=== PATIENT | female | born 1995 | race American Indian/Alaskan Native ===

== ENCOUNTER 2017-02-20 18:10 | Outpatient (CLI) | payer MEDICAID ==
[2017-02-20 18:36] VITALS: BP 110/61
[2017-02-20] MEDS ORDERED: LACTATED RINGERS 500 ML IV ONE (19:30)
== END 2017-02-20 19:32 | disposition home or self-care (01) ==
LOC: TRG 18:10
PROVIDERS: ATTEND Obstetrics & Gynecology
DX: O47.1 False labor at or after 37 completed weeks of gestation (principal); Z3A.37 37 weeks gestation of pregnancy

== ENCOUNTER 2017-03-05 18:24 | Outpatient (CLI) | payer MEDICAID ==
[2017-03-06 11:29] VITALS: BP 115/68
== END 2017-03-05 20:20 | disposition home or self-care (01) ==
LOC: TRG 18:24
PROVIDERS: ATTEND Obstetrics & Gynecology
DX: O47.1 False labor at or after 37 completed weeks of gestation (principal); Z3A.39 39 weeks gestation of pregnancy

== ENCOUNTER 2017-03-06 03:38 | Outpatient (CLI) | payer MEDICAID ==
[2017-03-06] MEDS ORDERED: LACTATED RINGERS 1,000 ML IV SCH (04:27)
[2017-03-06] MEDS ORDERED: SUBLIMAZE IV ONE (05:51)
[2017-03-06] MEDS ORDERED: SUBLIMAZE ONE (05:55)
[2017-03-06] MEDS ORDERED: AMBIEN PO PRN (06:55)
== END 2017-03-06 07:22 | disposition home or self-care (01) ==
LOC: TRG 03:38
PROVIDERS: ATTEND Obstetrics & Gynecology Gynecology
DX: O47.1 False labor at or after 37 completed weeks of gestation (principal); Z3A.39 39 weeks gestation of pregnancy
CPT/HCPCS: 59025; 96360; 96361; 96372; J3010; J7120

== ENCOUNTER 2017-03-06 09:14 | Outpatient (CLI) | payer MEDICAID ==
[2017-03-06] MEDS ORDERED: AMBIEN PO PRN (10:00)
[2017-03-06 12:15] VITALS: BP 120/76
== END 2017-03-06 10:15 | disposition home or self-care (01) ==
LOC: TRG 09:14
PROVIDERS: ATTEND Obstetrics & Gynecology Gynecology
DX: O47.1 False labor at or after 37 completed weeks of gestation (principal); Z3A.39 39 weeks gestation of pregnancy
CPT/HCPCS: 59025

== ENCOUNTER 2017-03-06 18:31 | Inpatient (IN) | payer MEDICAID ==
[2017-03-06] MEDS ORDERED: LACTATED RINGERS 1,000 ML ONE (18:56)
[2017-03-06] MEDS ORDERED: BRETHINE IVP PRN (19:29)
[2017-03-06] MEDS ORDERED: XYLOCAINE 2% INFILTRATI ONE (19:29)
[2017-03-06] MEDS ORDERED: ePHEDrine SULFATE IV PRN ×2 (19:29→21:53)
[2017-03-06] MEDS ORDERED: MINERAL OIL PO PRN (19:29)
[2017-03-06] MEDS ORDERED: BRETHINE SUB-Q PRN (19:29)
[2017-03-06] MEDS ORDERED: ZOFRAN IV PRN (19:29)
--- NOTE | 2017-03-06 19:29 | History and Physical Report ---
History of Present Illness Date of examination: 03/06/17 Date of admission: 03/06/17 18:31 Chief complaint: Painful contractions History of present illness: 21-year-old at 39+6 weeks presents with above complaints and issues, she is as [facility] patient. course has been unremarkable, she is GBS positive per patient Past History Past Medical History: no pertinent history Past Surgical History: no surgical history [employer] History: denies: chlamydia, gonorrhea, hepatitis B, hepatitis C, herpes, HIV , syphilis, trichomonas Social history: single, full code. denies: smoking, alcohol abuse, prescription drug abuse, IV drug use - Obstetrical History Expected Date of Delivery: 03/07/17 Actual Gestation: 39 Week(s) 6 Day(s) : 1 Para: 0 Medications and Allergies Allergies Allergy/AdvReac Type Severity Reaction Status Date / Time Penicillins Allergy Intermediate Hives Verified 02/20/17 18:28 Review of Systems Constitutional: no fever, no chills, no weakness, no chronic headaches Cardiovascular: no chest pain, no orthopnea, no edema, no syncope, no lightheadedness, no shortness of breath, no dyspnea on exertion, no high blood pressure, no leg edema, no decreased exercise tolerance Respiratory: no cough, no shortness of breath, no dyspnea on exertion Gastrointestinal: no nausea, no vomiting, no heartburn, no indigestion Genitourinary: contractions, no vaginal bleeding, no vaginal discharge, no leakage of fluid - Vital Signs Vital signs: Vital Signs Temp 99.9 F H 03/06/17 18:44 Temp Pulse Resp BP Pulse Ox 99.9 F H 80 127/76 03/06/17 18:44 03/06/17 18:47 03/06/17 18:47 - Physical Exam Cardiovascular: Regular rate, Normal S1, Normal S2 Lungs: Positive: Clear to auscultation, Normal air movement Abdomen: Positive: normal appearance, soft. Negative: distention, tenderness, guarding, rigidity Genitourinary (Female): Positive: normal external genitalia Uterus: Positive: enlarged (EFW ~ 3600) Extremities: Positive: normal - Obstetrical FHR: category 1 Uterine Contraction Monitor Mode: External Cervical Dilatation: 4 (Per RN exam) station: -2 Results All other labs normal. Assessment and Plan A: 21-year-old at 39+6 weeks in active labor -Cat 1 tracing P: -Admit -Routine labs -GBS prophylaxis -Epidural prn -Anticipate - Patient Problems (1) 39 weeks gestation of Current Visit: Yes Status: Acute (2) Active labor at term Current Visit: Yes Status: Acute
[2017-03-06] MEDS: LACTATED RINGERS 1,000 ML IV SCH ×2 (19:35→20:46)
[2017-03-06] MEDS: SUBLIMAZE IV PRN ×2 (19:50→21:50)
[2017-03-06] MEDS ORDERED: PITOCin/NS 20 UNIT/1000ML DRIP 20 UNITS/1,000 ML BAG IV SCH (20:00)
[2017-03-06] MEDS ORDERED: VANCOMYCIN/NS 1 GM/250 ML 1 GM/250 ML BAG IV SCH (20:00)
[2017-03-06] MEDS ORDERED: PITOCin/NS 30 UNIT/500ML 30 UNITS/500 ML BAG IV SCH ×2 (20:00)
--- NOTE | 2017-03-06 21:03 | Progress Note ---
Assessment and Plan A: 21-year-old at 39+6 weeks in active labor -Cat 1 tracing P: -Continue present care -Anticipate - Patient Problems (1) 39 weeks gestation of Current Visit: Yes Status: Acute (2) Active labor at term Current Visit: Yes Status: Acute Subjective - Subjective Date of service: 03/06/17 Interval history: she is presently 4-5 cm and -2 station Patient reports: contractions, no loss of fluid, no vaginal bleeding Objective - Vital Signs Vital Signs: Vital Signs - 12hr 03/06/17 03/06/17 03/06/17 18:44 18:47 19:50 Temperature 99.9 F H Pulse Rate 80 Respiratory 14 Rate Blood Pressure 127/76 - Exam FHR: category 1 Cervical Dilatation: 4.5 station: -2
[2017-03-06 21:18] LABS: Hematocrit 31.2 % (30.3-42.9); Hemoglobin 10.1 gm/dl (10.1-14.3); Mean Corpuscular HGB Conc 32 % (30-34); Mean Corpuscular Hemoglobin 28 pg (28-32); Mean Corpuscular Volume 87 fl (79-97); Platelet Count 157 K/mm3 (140-440); Red Blood Count 3.57 M/mm3 (3.65-5.03); Red Cell Distribution Width 15.4 % (13.2-15.2); White Blood Count 11.8 K/mm3 (4.5-11.0)
[2017-03-06] MEDS ORDERED: NARCAN 2 MG/2 ML IV PRN (21:53)
--- NOTE | 2017-03-06 21:53 | Anesthesia Consultation ---
Anesthesia Consult and Med Hx Date of service: 03/06/17 - Airway Anesthetic Teeth Evaluation: Good ROM Head & Neck: Adequate Mental/Hyoid Distance: Adequate Mallampati Class: Class II Intubation Access Assessment: Probably Good - Pulmonary Exam CTA: Yes - Cardiac Exam Cardiac Exam: RRR - Pre-Operative Health Status ASA Pre-Surgery Classification: ASA2 Proposed Anesthetic Plan: Epidural, Spinal - Pulmonary Hx Asthma: No COPD: No Hx Pneumonia: No - Cardiovascular System Hx Hypertension: No - Central Nervous System Hx Seizures: No Hx Psychiatric Problems: No - Endocrine Hx Renal Disease: No Hx End Stage Renal Disease: No Hx Hypothyroidism: No Hx Hyperthyroidism: No - Hematic Hx Anemia: No Hx Sickle Cell Disease: No - Other Systems Hx Alcohol Use: No - Additional Comments Anesthesia Medical History Comments: IUP
[2017-03-06] MEDS ORDERED: fentaNYL-BUPIV 2 MCG/ML-0.125% 200 MCG/100 ML BAG EPIDURAL SCH (22:00)
--- NOTE | 2017-03-06 23:14 | Progress Note ---
Assessment and Plan A: 21-year-old at 39+6 weeks in active labor -Cat 1 tracing at this time P: -Decels have resolved at this time -Continue present care -Anticipate - Patient Problems (1) 39 weeks gestation of Current Visit: Yes Status: Acute (2) Active labor at term Current Visit: Yes Status: Acute Subjective - Subjective Date of service: 03/06/17 Interval history: Patient with a run of late decels after her epidural, she is 5 cm. Currently has oxygen, IV hydration ongoing w/ position changes. Her decel has resolved. Plan is to hold pitocin for now and observe. Patient reports: contractions, no loss of fluid, no vaginal bleeding Objective - Vital Signs Vital Signs: Vital Signs - 12hr 03/06/17 03/06/17 03/06/17 18:44 18:47 19:50 Temperature 99.9 F H Pulse Rate 80 Respiratory 14 Rate Blood Pressure 127/76 Blood Pressure [Right] O2 Sat by Pulse Oximetry 03/06/17 03/06/17 03/06/17 21:33 21:48 21:50 Temperature 98.2 F Pulse Rate 80 83 Respiratory 14 14 Rate Blood Pressure Blood Pressure 127/76 [Right] O2 Sat by Pulse 98 Oximetry 03/06/17 03/06/17 03/06/17 21:53 22:08 22:11 Temperature Pulse Rate 82 79 80 Respiratory Rate Blood Pressure 117/59 Blood Pressure [Right] O2 Sat by Pulse 100 99 Oximetry 03/06/17 03/06/17 03/06/17 22:13 22:15 22:16 Temperature Pulse Rate 80 86 83 Respiratory Rate Blood Pressure 118/61 118/63 113/60 Blood Pressure [Right] O2 Sat by Pulse 100 Oximetry 03/06/17 03/06/17 03/06/17 22:18 22:20 22:23 Temperature Pulse Rate 77 96 H 84 Respiratory Rate Blood Pressure 113/63 115/65 101/58 Blood Pressure [Right] O2 Sat by Pulse 99 100 Oximetry 03/06/17 03/06/17 03/06/17 22:24 22:26 22:28 Temperature Pulse Rate 98 H 106 H 112 H Respiratory Rate Blood Pressure 110/63 103/55 101/58 Blood Pressure [Right] O2 Sat by Pulse 99 Oximetry 03/06/17 03/06/17 03/06/17 22:31 22:33 22:35 Temperature Pulse Rate 95 H 109 H 83 Respiratory Rate Blood Pressure 106/56 101/57 103/54 Blood Pressure [Right] O2 Sat by Pulse 100 Oximetry 03/06/17 03/06/17 03/06/17 22:36 22:38 22:39 Temperature Pulse Rate 75 75 75 Respiratory Rate Blood Pressure 106/56 105/55 Blood Pressure [Right] O2 Sat by Pulse 99 Oximetry 03/06/17 03/06/17 03/06/17 22:41 22:43 22:45 Temperature Pulse Rate 79 99 H 75 Respiratory Rate Blood Pressure 107/56 105/55 116/59 Blood Pressure [Right] O2 Sat by Pulse 100 Oximetry 03/06/17 03/06/17 03/06/17 22:47 22:48 22:51 Temperature Pulse Rate 75 95 H 96 H Respiratory Rate Blood Pressure 110/54 99/60 107/55 Blood Pressure [Right] O2 Sat by Pulse 100 Oximetry 03/06/17 03/06/17 03/06/17 22:53 22:55 22:58 Temperature Pulse Rate 76 79 Respiratory Rate Blood Pressure 104/51 105/59 Blood Pressure [Right] O2 Sat by Pulse 100 100 Oximetry 03/06/17 03/06/17 23:00 23:03 Temperature Pulse Rate 86 85 Respiratory Rate Blood Pressure 103/51 109/53 Blood Pressure [Right] O2 Sat by Pulse 100 Oximetry - Exam FHR: category 1 Cervical Dilatation: 5 - Labs Labs: Abnormal Labs 03/06/17 21:00 WBC 11.8 H RBC 3.57 L RDW 15.4 H Laboratory Results - last 24 hr 03/06/17 03/06/17 21:00 21:00 WBC 11.8 H RBC 3.57 L Hgb 10.1 Hct 31.2 MCV 87 MCH 28 MCHC 32 RDW 15.4 H Plt Count 157 Blood Type O POSITIVE Antibody Screen TNR NELSON Antibody Screen Negative
--- NOTE | 2017-03-07 00:12 | Progress Note ---
Assessment and Plan - Patient Problems (1) 39 weeks gestation of Current Visit: Yes Status: Acute (2) Active labor at term Current Visit: Yes Status: Acute Subjective - Subjective Date of service: 03/07/17 Patient reports: movement normal, contractions, no loss of fluid, no vaginal bleeding Objective - Vital Signs Vital Signs: Vital Signs - 12hr 03/06/17 03/06/17 03/06/17 18:44 18:47 19:50 Temperature 99.9 F H Pulse Rate 80 Respiratory 14 Rate Blood Pressure 127/76 Blood Pressure [Right] O2 Sat by Pulse Oximetry 03/06/17 03/06/17 03/06/17 21:33 21:48 21:50 Temperature 98.2 F Pulse Rate 80 83 Respiratory 14 14 Rate Blood Pressure Blood Pressure 127/76 [Right] O2 Sat by Pulse 98 Oximetry 03/06/17 03/06/17 03/06/17 21:53 22:08 22:11 Temperature Pulse Rate 82 79 80 Respiratory Rate Blood Pressure 117/59 Blood Pressure [Right] O2 Sat by Pulse 100 99 Oximetry 03/06/17 03/06/17 03/06/17 22:13 22:15 22:16 Temperature Pulse Rate 80 86 83 Respiratory Rate Blood Pressure 118/61 118/63 113/60 Blood Pressure [Right] O2 Sat by Pulse 100 Oximetry 03/06/17 03/06/17 03/06/17 22:18 22:20 22:23 Temperature Pulse Rate 77 96 H 84 Respiratory Rate Blood Pressure 113/63 115/65 101/58 Blood Pressure [Right] O2 Sat by Pulse 99 100 Oximetry 03/06/17 03/06/17 03/06/17 22:24 22:26 22:28 Temperature Pulse Rate 98 H 106 H 112 H Respiratory Rate Blood Pressure 110/63 103/55 101/58 Blood Pressure [Right] O2 Sat by Pulse 99 Oximetry 03/06/17 03/06/17 03/06/17 22:31 22:33 22:35 Temperature Pulse Rate 95 H 109 H 83 Respiratory Rate Blood Pressure 106/56 101/57 103/54 Blood Pressure [Right] O2 Sat by Pulse 100 Oximetry 03/06/17 03/06/17 03/06/17 22:36 22:38 22:39 Temperature Pulse Rate 75 75 75 Respiratory Rate Blood Pressure 106/56 105/55 Blood Pressure [Right] O2 Sat by Pulse 99 Oximetry 03/06/17 03/06/17 03/06/17 22:41 22:43 22:45 Temperature Pulse Rate 79 99 H 75 Respiratory Rate Blood Pressure 107/56 105/55 116/59 Blood Pressure [Right] O2 Sat by Pulse 100 Oximetry 03/06/17 03/06/17 03/06/17 22:47 22:48 22:51 Temperature Pulse Rate 75 95 H 96 H Respiratory Rate Blood Pressure 110/54 99/60 107/55 Blood Pressure [Right] O2 Sat by Pulse 100 Oximetry 03/06/17 03/06/17 03/06/17 22:53 22:55 22:58 Temperature Pulse Rate 76 79 Respiratory Rate Blood Pressure 104/51 105/59 Blood Pressure [Right] O2 Sat by Pulse 100 100 Oximetry 03/06/17 03/06/17 03/06/17 23:00 23:03 23:08 Temperature Pulse Rate 86 85 105 H Respiratory Rate Blood Pressure 103/51 109/53 106/55 Blood Pressure [Right] O2 Sat by Pulse 100 100 Oximetry 03/06/17 03/06/17 03/06/17 23:13 23:18 23:23 Temperature Pulse Rate 96 H 84 73 Respiratory Rate Blood Pressure Blood Pressure [Right] O2 Sat by Pulse 100 100 100 Oximetry 03/06/17 03/06/17 03/06/17 23:28 23:47 23:52 Temperature Pulse Rate 99 H 72 83 Respiratory Rate Blood Pressure 124/66 Blood Pressure [Right] O2 Sat by Pulse 100 100 100 Oximetry 03/06/17 03/07/17 03/07/17 23:57 00:02 00:07 Temperature Pulse Rate 83 83 65 Respiratory Rate Blood Pressure Blood Pressure [Right] O2 Sat by Pulse 100 100 100 Oximetry 03/07/17 00:12 Temperature Pulse Rate 70 Respiratory Rate Blood Pressure Blood Pressure [Right] O2 Sat by Pulse 100 Oximetry - Exam FHR: category 1 - Labs Labs: Abnormal Labs 03/06/17 21:00 WBC 11.8 H RBC 3.57 L RDW 15.4 H Laboratory Results - last 24 hr 03/06/17 03/06/17 21:00 21:00 WBC 11.8 H RBC 3.57 L Hgb 10.1 Hct 31.2 MCV 87 MCH 28 MCHC 32 RDW 15.4 H Plt Count 157 Blood Type O POSITIVE Antibody Screen TNR NELSON Antibody Screen Negative
--- NOTE | 2017-03-07 01:25 | Progress Note ---
Assessment and Plan A: 21-year-old at 39+6 weeks in active labor -Cat 1 tracing at this time P: -AROM for mild mec -IUPC placed -Continue present care - Patient Problems (1) 39 weeks gestation of Current Visit: Yes Status: Acute (2) Active labor at term Current Visit: Yes Status: Acute Subjective - Subjective Date of service: 03/07/17 Interval history: D cells appear to have resolved, category 1 tracing Patient reports: movement normal, contractions, no loss of fluid, no vaginal bleeding Objective - Vital Signs Vital Signs: Vital Signs - 12hr 03/06/17 03/06/17 03/06/17 18:44 18:47 19:50 Temperature 99.9 F H Pulse Rate 80 Respiratory 14 Rate Blood Pressure 127/76 Blood Pressure [Right] O2 Sat by Pulse Oximetry 03/06/17 03/06/17 03/06/17 21:33 21:48 21:50 Temperature 98.2 F Pulse Rate 80 83 Respiratory 14 14 Rate Blood Pressure Blood Pressure 127/76 [Right] O2 Sat by Pulse 98 Oximetry 03/06/17 03/06/17 03/06/17 21:53 22:08 22:11 Temperature Pulse Rate 82 79 80 Respiratory Rate Blood Pressure 117/59 Blood Pressure [Right] O2 Sat by Pulse 100 99 Oximetry 03/06/17 03/06/17 03/06/17 22:13 22:15 22:16 Temperature Pulse Rate 80 86 83 Respiratory Rate Blood Pressure 118/61 118/63 113/60 Blood Pressure [Right] O2 Sat by Pulse 100 Oximetry 03/06/17 03/06/17 03/06/17 22:18 22:20 22:23 Temperature Pulse Rate 77 96 H 84 Respiratory Rate Blood Pressure 113/63 115/65 101/58 Blood Pressure [Right] O2 Sat by Pulse 99 100 Oximetry 03/06/17 03/06/17 03/06/17 22:24 22:26 22:28 Temperature Pulse Rate 98 H 106 H 112 H Respiratory Rate Blood Pressure 110/63 103/55 101/58 Blood Pressure [Right] O2 Sat by Pulse 99 Oximetry 03/06/17 03/06/17 03/06/17 22:31 22:33 22:35 Temperature Pulse Rate 95 H 109 H 83 Respiratory Rate Blood Pressure 106/56 101/57 103/54 Blood Pressure [Right] O2 Sat by Pulse 100 Oximetry 03/06/17 03/06/17 03/06/17 22:36 22:38 22:39 Temperature Pulse Rate 75 75 75 Respiratory Rate Blood Pressure 106/56 105/55 Blood Pressure [Right] O2 Sat by Pulse 99 Oximetry 03/06/17 03/06/17 03/06/17 22:41 22:43 22:45 Temperature Pulse Rate 79 99 H 75 Respiratory Rate Blood Pressure 107/56 105/55 116/59 Blood Pressure [Right] O2 Sat by Pulse 100 Oximetry 03/06/17 03/06/17 03/06/17 22:47 22:48 22:51 Temperature Pulse Rate 75 95 H 96 H Respiratory Rate Blood Pressure 110/54 99/60 107/55 Blood Pressure [Right] O2 Sat by Pulse 100 Oximetry 03/06/17 03/06/17 03/06/17 22:53 22:55 22:58 Temperature Pulse Rate 76 79 Respiratory Rate Blood Pressure 104/51 105/59 Blood Pressure [Right] O2 Sat by Pulse 100 100 Oximetry 03/06/17 03/06/17 03/06/17 23:00 23:03 23:08 Temperature Pulse Rate 86 85 105 H Respiratory Rate Blood Pressure 103/51 109/53 106/55 Blood Pressure [Right] O2 Sat by Pulse 100 100 Oximetry 03/06/17 03/06/17 03/06/17 23:13 23:18 23:23 Temperature Pulse Rate 96 H 84 73 Respiratory Rate Blood Pressure Blood Pressure [Right] O2 Sat by Pulse 100 100 100 Oximetry 03/06/17 03/06/17 03/06/17 23:28 23:47 23:52 Temperature Pulse Rate 99 H 72 83 Respiratory Rate Blood Pressure 124/66 Blood Pressure [Right] O2 Sat by Pulse 100 100 100 Oximetry 03/06/17 03/07/17 03/07/17 23:57 00:02 00:07 Temperature Pulse Rate 83 83 65 Respiratory Rate Blood Pressure Blood Pressure [Right] O2 Sat by Pulse 100 100 100 Oximetry 03/07/17 03/07/17 03/07/17 00:12 00:17 00:22 Temperature Pulse Rate 70 65 68 Respiratory Rate Blood Pressure Blood Pressure [Right] O2 Sat by Pulse 100 100 100 Oximetry 03/07/17 03/07/17 03/07/17 00:27 00:32 00:37 Temperature Pulse Rate 63 61 74 Respiratory Rate Blood Pressure Blood Pressure [Right] O2 Sat by Pulse 100 100 100 Oximetry 03/07/17 03/07/17 03/07/17 00:38 00:42 00:47 Temperature Pulse Rate 71 87 75 Respiratory Rate Blood Pressure 109/65 Blood Pressure [Right] O2 Sat by Pulse 100 100 Oximetry 03/07/17 03/07/17 03/07/17 00:52 00:57 01:02 Temperature Pulse Rate 90 104 H 114 H Respiratory Rate Blood Pressure Blood Pressure [Right] O2 Sat by Pulse 100 100 100 Oximetry 03/07/17 03/07/17 03/07/17 01:04 01:07 01:12 Temperature Pulse Rate 74 71 82 Respiratory Rate Blood Pressure Blood Pressure [Right] O2 Sat by Pulse 94 100 100 Oximetry 03/07/17 03/07/17 03/07/17 01:17 01:22 01:23 Temperature Pulse Rate 70 67 63 Respiratory Rate Blood Pressure 105/52 Blood Pressure [Right] O2 Sat by Pulse 100 100 Oximetry - Exam FHR: category 1 Cervical Dilatation: 5.5 station: -1 - Labs Labs: Abnormal Labs 03/06/17 21:00 WBC 11.8 H RBC 3.57 L RDW 15.4 H Laboratory Results - last 24 hr 03/06/17 03/06/17 21:00 21:00 WBC 11.8 H RBC 3.57 L Hgb 10.1 Hct 31.2 MCV 87 MCH 28 MCHC 32 RDW 15.4 H Plt Count 157 Blood Type O POSITIVE Antibody Screen TNR NELSON Antibody Screen Negative
--- NOTE | 2017-03-07 03:34 | Event Note ---
Date: 03/07/17 Patient with recurrent variable decelerations and occasional lates. Her cervix is unchanged at 4-5 cm. We'll proceed to the OR for primary , patient has been consented.
[2017-03-07] MEDS ORDERED: REGLAN IV ONE (03:43)
[2017-03-07] MEDS ORDERED: PEPCID IV ONE (03:43)
[2017-03-07] MEDS ORDERED: BICITRA PO ONE (03:43)
[2017-03-07] MEDS ORDERED: EMLA TP PRN (03:43)
[2017-03-07] MEDS ORDERED: GARAMYCIN 120 MG in NACL 0.9% 100 ML IV SCH (03:45)
[2017-03-07] MEDS ORDERED: CLEOCIN 600 MG/50 mL 600 MG/50 ML BAG IV NR (04:00)
[2017-03-07] MEDS ORDERED: GARAMYCIN/NS 120MG/100ML 120 MG/100 ML BAG IV ONE (04:00)
[2017-03-07] MEDS ORDERED: XYLOCAINE MPF 2% ONE (04:18)
[2017-03-07] MEDS ORDERED: BENADRYL ONE (04:27)
[2017-03-07] MEDS ORDERED: NACL 0.9% IR ONE (04:30)
[2017-03-07] MEDS ORDERED: WATER FOR IRRIG STERILE IR ONE (04:30)
[2017-03-07] MEDS ORDERED: VERSED ONE (04:43)
[2017-03-07] MEDS ORDERED: DECADRON ONE (04:46)
[2017-03-07] MEDS ORDERED: MORPHINE ONE (04:47)
--- NOTE | 2017-03-07 05:38 | Operative Report ---
Operative Report Operative Report: DATE: 03/07/2017 PREOPERATIVE DIAGNOSIS: 21-year-old at 39+6, category 2 tracing, arrest of descent and arrest of dilation POSTOP DIAGNOSIS: As above NAME OF PROCEDURE: Primary low transverse section SURGEON: THALIA BERNARD MD CIRCULATION ANALYST: [] ANESTHESIA: Epidural EBL: 800 mL PATHOLOGY SPECIMEN: None URINE OUTPUT: 250 mL FINDINGS: Male infant in cephalic presentation, time of delivery was 4:34 AM, weighed 7 lbs. 11 oz. or 3498 g, Apgars were 8 and 9, normal uterus tubes and ovaries bilaterally DESCRIPTION OF PROCEDURE: After informed consent, patient was taken to the operating room where she was prepped and draped in a sterile fashion. Pfannestial incision was performed 2 cm above the pubic symphysis. This was then carried down to the underlying rectus fascia which was scored in the midline. The fascial incision was extended laterally with the use of Hopkins scissors, anterior leaf was then grasped with Aramis's elevated dissected sharply and bluntly off the underlying rectus. In a similar fashion the inferior leaf was grasped elevated dissected sharply and bluntly off the underlying rectus. The rectus was in the midline and the peritoneal cavity was entered without difficulty. After good visualization of the bladder the peritoneal layer was extended up and down; bladder blade was placed in the patient's pelvic cavity, bladder flap was created without difficulty. A hysterotomy incision was then performed with clear amniotic fluid noted. in cephalic presentation was delivered without difficulty in the usual manner; cord was clamped cut and infant was handed over to waiting NICU staff. The placenta was then delivered intact, the uterus was then exteriorized cleared of all clots and debris. Her hysterotomy incision was then closed in a running locked fashion with 0 Vicryl on a CTX; using the same suture were able to imbricate the initial layer. The uterus was then returned to the patient's pelvic cavity; the peritoneal edges were grasped with hemostats and Kat's; irrigation was used to clear the gutters of all clots and debris. Tisseel hemostatic agent was applied copiously over the hysterotomy incision. The bladder flap was then closed in a running fashion with 3-0 Vicryl. The peritoneal layer was closed in a running fashion with 3-0 Vicryl; the rectus was reapproximated with a single [id number] stitch. The fascia was then closed in a running fashion with 0 Vicryl; the subcutaneous layer was reapproximated with a single [id number] stitch. The skin was then closed in a subcuticular manner with 4-0 Monocryl. She tolerated the procedure well lap and instrument counts were correct 2, she did receive 2 grams of Ancef inadvertently prior to the procedure. She is transferred to PACU in stable condition.
[2017-03-07] MEDS ORDERED: TUCKS PAD TP PRN (05:39)
[2017-03-07] MEDS ORDERED: ANUCORT-HC PR PRN (05:39)
[2017-03-07] MEDS ORDERED: SENOKOT PO PRN (05:39)
[2017-03-07] MEDS ORDERED: MYLICON PO PRN (05:39)
[2017-03-07] MEDS ORDERED: TYLENOL PO PRN (05:39)
[2017-03-07] MEDS ORDERED: LANSINOH TP PRN (05:39)
[2017-03-07] MEDS ORDERED: NARCAN 0.4 MG/1 ML IV PRN (05:39)
[2017-03-07] MEDS ORDERED: TORADOL IV PRN (05:39)
[2017-03-07] MEDS ORDERED: MILK OF MAGNESIA PO PRN (05:39)
[2017-03-07] MEDS ORDERED: SODIUM CHLORIDE FLUSH SYRINGE 10 ML IV NR (06:00)
[2017-03-07] MEDS ORDERED: PITOCin/NS 20 UNIT/1000ML DRIP 20 UNITS/1,000 ML BAG IV SCH (06:00)
[2017-03-07] MEDS ORDERED: D5LR 1,000 ML IV SCH (06:00)
[2017-03-07] MEDS ORDERED: DILAUDID IV PRN (06:01)
[2017-03-07] MEDS ORDERED: MORPHINE IV PRN ×2 (06:01)
--- NOTE | 2017-03-07 06:02 | Post Anesthesia Evaluation ---
- Post Anesthesia Evaluation Patient Participated: Yes Airway Patent: Yes Stable Respiratory Function: Yes Nausea/Vomiting: No Temp > 96.8F: Yes Pain Manageable: Yes Adequeate Hydration: Yes Anesthesia Complications: No Block Receding Appropriately: Yes Patient on Ventilator: No
--- NOTE | 2017-03-07 06:02 | Anesthesia Day of Surgery ---
Anesthesia Day of Surgery - Day of Surgery Patient Examined: Yes Patient H&P Reviewed: Yes Patient is NPO: Yes
[2017-03-07] MEDS ORDERED: BENADRYL IV PRN (06:07)
[2017-03-07 16:43] LABS: Hematocrit 25.1 % (30.3-42.9); Hemoglobin 8.1 gm/dl (10.1-14.3)
[2017-03-07] MEDS: FEOSOL PO SCH (17:40)
[2017-03-07] MEDS: PRENATAL VITAMIN PO SCH (17:40)
[2017-03-07] MEDS: MOTRIN PO PRN (17:48)
[2017-03-08] MEDS: PERCOCET 5/325 PO PRN ×2 (00:17→08:49)
[2017-03-08] MEDS ORDERED: M-M-R II VACCINE SUB-Q ONE (06:00)
[2017-03-08] MEDS ORDERED: BOOSTRIX IM ONE (06:05)
[2017-03-08] MEDS: MOTRIN PO PRN ×2 (08:47→17:10)
[2017-03-08] MEDS: PRENATAL VITAMIN PO SCH (08:47)
[2017-03-08] MEDS: FEOSOL PO SCH (08:47)
--- NOTE | 2017-03-08 09:30 | Progress Note ---
Subjective Date of service: 03/08/17 Interval history: 1st POD after Patient is in the bed, comfortable. Pain is well controlled with pain meds. Ambulated well. No residual neurological deficit. No significant pruritus. No anesthesia complications. Objective - Constitutional Vitals: Vital Signs - 12hr 03/08/17 03/08/17 03/08/17 00:15 00:17 01:17 Temperature 98.7 F Pulse Rate 61 Respiratory 18 16 18 Rate Blood Pressure 105/62 [Right] 03/08/17 03/08/17 03/08/17 04:15 08:47 08:49 Temperature 98.9 F Pulse Rate 57 L Respiratory 18 20 20 Rate Blood Pressure 90/41 [Right] - Labs CBC & Chem 7: 03/07/17 15:44 Labs: Abnormal lab results 03/07/17 Range/Units 15:44 Hgb 8.1 L (10.1-14.3) gm/dl Hct 25.1 L D (30.3-42.9) %
--- NOTE | 2017-03-08 12:04 | Progress Note ---
Assessment and Plan - Patient Problems (1) Status post primary low transverse section Onset Date: 03/08/17 Current Visit: Yes Status: Resolved Plan to address problem: A: S/P C Section - POD #1 Doing well Acute blood loss anemia - stable P: Continue RPOC Anticipate discharge home in 24-48hrs (2) Acute blood loss anemia Onset Date: 03/08/17 Current Visit: Yes Status: Resolved Subjective - Subjective Date of service: 03/08/17 Principal diagnosis: s/p C Section - POD #1 Interval history: Pt is feeling well without complaints. Tolerating a reg diet without nausea or vomiting, ambulating and voiding without difficulty. Patient reports: appetite normal, voiding normally, pain well controlled, flatus , ambulating normally, no nauseated : doing well, nursing well Objective - Vital Signs Latest vital signs: Vital Signs Temp Pulse Resp BP 03/08/17 09:00 98.1 F 77 18 103/64 03/08/17 08:49 20 03/08/17 08:47 20 03/08/17 04:15 98.9 F 57 L 18 90/41 03/08/17 01:17 18 03/08/17 00:17 16 03/08/17 00:15 98.7 F 61 18 105/62 03/07/17 21:30 99 F 60 18 94/47 03/07/17 16:45 98 F 78 18 122/72 03/07/17 12:45 98 F 80 20 126/77 Intake and Output 03/07/17 03/08/17 03/08/17 22:59 06:59 14:59 Intake Total 120 360 120 Output Total 1500 900 Balance 120 -1140 -780 Intake: Oral 120 120 120 Intake, Free Water 240 Output: Urine 1500 900 Void 1500 900 Other: Total, Intake Amount 120 120 120 Total, Output Amount 600 900 # Voids Indwelling Catheter 900 Void 0 - Exam Breasts: Present: deferred Cardiovascular: Present: Regular rate Lungs: Present: Clear to auscultation Abdomen: Present: normal appearance, soft Uterus: Present: normal, firm, fundal height below umbilicus Extremities: Present: normal Incision: Present: normal, dry, intact, dressed - Labs Labs: Abnormal lab results 03/07/17 Range/Units 15:44 Hgb 8.1 L (10.1-14.3) gm/dl Hct 25.1 L D (30.3-42.9) % Laboratory Tests 03/06/17 03/06/17 03/06/17 21:00 21:00 21:00 WBC 11.8 H RBC 3.57 L Hgb 10.1 Hct 31.2 MCV 87 MCH 28 MCHC 32 RDW 15.4 H Plt Count 157 RPR Nonreactive Blood Type O POSITIVE Antibody Screen TNR NELSON Antibody Screen Negative 03/07/17 15:44 WBC RBC Hgb 8.1 L Hct 25.1 L D MCV MCH MCHC RDW Plt Count RPR Blood Type Antibody Screen NELSON Antibody Screen
[2017-03-09] MEDS: PERCOCET 5/325 PO PRN (03:40)
--- NOTE | 2017-03-09 07:38 | Progress Note ---
Assessment and Plan POD# 2 s/p Primary LTCS -Doing well P: -Continue routine postop care -Anticipate discharge in 24-48 hours - Patient Problems (1) Status post primary low transverse section Onset Date: 03/08/17 Current Visit: Yes Status: Resolved (2) 39 weeks gestation of Current Visit: Yes Status: Acute (3) Active labor at term Current Visit: Yes Status: Acute Subjective - Subjective Date of service: 03/09/17 Principal diagnosis: s/p C Section - POD #2 Interval history: Patient seen and examined, stable doing well. No nausea, no chest pain, no shortness of breath no fever or chills. Ambulatory without difficulty has adequate bowel bladder function. Patient reports: appetite normal, voiding normally, pain well controlled, flatus , ambulating normally, no dizzy ambulation, no nauseated : doing well Objective - Vital Signs Latest vital signs: Vital Signs Temp Pulse Resp BP 03/09/17 00:00 97.8 F 64 18 106/64 03/08/17 17:10 20 03/08/17 13:44 98.2 F 78 18 102/79 03/08/17 09:00 98.1 F 77 18 103/64 03/08/17 08:49 20 03/08/17 08:47 20 Intake and Output 03/08/17 03/08/17 03/09/17 15:59 23:59 07:59 Intake Total 120 120 Output Total 900 Balance -780 120 Intake: Oral 120 120 Output: Urine 900 Void 900 Other: Total, Intake Amount 120 120 Total, Output Amount 900 # Voids Void 1 - Exam Abdomen: Present: normal appearance, soft. Absent: distention, tenderness, guarding, rigidity Uterus: Absent: tenderness Extremities: Present: normal Incision: Present: dressed
--- NOTE | 2017-03-09 10:19 | Discharge Summary ---
Providers - Providers Date of Admission: 03/06/17 18:31 Date of discharge: 03/10/17 Attending physician: THALIA BERNARD Primary care physician: THALIA BERNARD Hospitalization Reason for admission: induction of labor, IUP at term Delivery: Procedure: primary low transverse Incision: dry, intact Other procedures: none complications: none Discharge diagnosis: IUP at term delivered [place] baby: female Hospital course: Uncomplicated Post-op course Condition at discharge: Good Disposition: DC-01 TO HOME OR SELFCARE - Discharge Diagnoses (1) Status post primary low transverse section Status: Resolved (2) 39 weeks gestation of Status: Acute (3) Active labor at term Status: Acute Plan - Discharge Medications Prescriptions: Ibuprofen [Motrin 600 MG tab] 600 mg PO Q8H PRN #30 tablet PRN Reason: Pain Multivitamin with Iron [Multivitamins with Iron] 1 each PO DAILY #30 tablet oxyCODONE /ACETAMINOPHEN [Percocet 5/325] 1 tab PO Q6HR PRN #30 tablet PRN Reason: Pain - Provider Discharge Summary Activity: no sex for 6 weeks, no heavy lifting 4 weeks, no strenuous exercise Diet: routine Additional instructions: [] Smoking cessation referral if applicable(refer to patient education folder for contact #) [] Refer to [facility]'s [facility] Booklet Call your doctor immediately for: * Fever > 100.5 * Heavy vaginal bleeding ( >1 pad per hour) * Severe persistent headache * Shortness of breath * Reddened, hot, painful area to leg or breast * Drainage or odor from incision. * Keep incision clean and dry at all times and follow doctor's instructions regarding bathing/showering - Follow up plan Follow up: THALIA BERNARD MD [Primary Care Provider] - 14 Days
[2017-03-09] MEDS: FEOSOL PO SCH (10:53)
[2017-03-09] MEDS: PRENATAL VITAMIN PO SCH (10:53)
[2017-03-09] MEDS: MOTRIN PO PRN (13:19)
[2017-03-10] MEDS: PERCOCET 5/325 PO PRN (05:49)
[2017-03-10 08:59] VITALS: BP 91/43
[2017-03-10] MEDS: FEOSOL PO SCH (10:58)
[2017-03-10] MEDS: PRENATAL VITAMIN PO SCH (10:58)
== END 2017-03-10 14:40 | disposition home or self-care (01) | DRG 765 ==
LOC: LD 18:31 → OB 03-07 08:01
PROVIDERS: ADMIT Obstetrics & Gynecology Gynecology; ATTEND Obstetrics & Gynecology Gynecology
PROC: 10D00Z1 Extraction of Products of Conception, Low, Open Approach (ICD-10-PCS; principal; 2017-03-07)
PROC: 10H00YZ Insertion of Other Device into Products of Conception, Open Approach (ICD-10-PCS; 2017-03-07)
PROC: 10907ZC Drainage of Amniotic Fluid, Therapeutic from Products of Conception, Via Natural or Artificial Opening (ICD-10-PCS; 2017-03-07)
PROC: 3E0234Z Introduction of Serum, Toxoid and Vaccine into Muscle, Percutaneous Approach (ICD-10-PCS; 2017-03-08)
DX: O76 Abnormality in fetal heart rate and rhythm complicating labor and delivery (principal); D62 Acute posthemorrhagic anemia; O62.2 Other uterine inertia; Z3A.39 39 weeks gestation of pregnancy; Z37.0 Single live birth; O99.824 Streptococcus B carrier state complicating childbirth; Z88.0 Allergy status to penicillin; O99.03 Anemia complicating the puerperium; Z23 Encounter for immunization
CPT/HCPCS: 36415; 85014; 85018; 85027; 86592; 86850; 86900; 86901; 90707; 99211; A6250; C9250; G0463; J1100; J1200; J1580; J1885; J2250; J2270; J2590; J2765; J3010; J3370; J7120; J7121